=== PATIENT | male | born 1955 | race Caucasian/White ===

== ENCOUNTER 2022-03-23 12:20 | Emergency (ER) | payer MEDICARE, OTHER ==
[~2022-03-23] VITALS: Ht 172.7 cm; Wt 72.6 kg
[2022-03-23] MEDS ORDERED: LACTATED RINGERS 1,000 ML IV STA (12:46)
--- NOTE | 2022-03-23 12:46 | ED General ---
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 Started feeling sick roughly 8 days ago with fever, body aches. Tested positive for COVID roughly 6 days ago. Has been doing well and has not had a fever for couple days, but has had persistent nonbloody diarrhea. States he is trying to keep up with fluids, but having difficulty. He was having a bowel movement, bearing down, and almost passed out. His wanted him to be checked in the ER. He states he feels at his baseline right now other than slightly worn down. Denies any chest pain, shortness of breath, abdominal pain, nausea, vomiting, focal weakness or numbness, headache, neck stiffness, or any other concerns. COVID vaccinated x3. Allergies and Home Medications Allergies Coded Allergies: morphine (Verified Allergy, Mild, 03/23/22) n/v Patient Home Medication List Home Medication List Reviewed: Yes Review of Systems Review of Systems Constitutional: No fever EENTM: no symptoms reported Respiratory: no symptoms reported Cardiovascular: other (near syncope) Gastrointestinal: diarrhea Genitourinary: no symptoms reported Musculoskeletal: no symptoms reported Skin: no symptoms reported Psychiatric/Neurological: No Symptoms Reported Hematologic/Lymphatic: No Symptoms Reported Immunological/Allergic: no symptoms reported All Other Systems Reviewed Negative Unless Noted: Yes Past Fiebytq-Fhxaxl-Lgsoza Hx Patient Social History Tobacco Use?: No Substance use?: No Alcohol Use?: No Past Medical History Surgeries: Yes Appendectomy Physical Exam Vital Signs Vital Signs - First Documented 03/23/22 12:30 Temp 36.0 Pulse 90 Resp 18 B/P (MAP) 135/78 (97) Pulse Ox 96 O2 Delivery Room Air Capillary Refill : Height, Weight, BMI Height: '" Weight: lbs. oz. kg; BMI Method: General Appearance: No Apparent Distress, WD/WN Eyes: Bilateral Eye Normal Inspection HEENT: PERRL/EOMI, Normal ENT Inspection, Pharynx Normal Neck: Full Range of Motion, Normal Inspection, Non Tender, Supple Respiratory: Chest Non Tender, Lungs Clear, Normal Breath Sounds, No Accessory Muscle Use, No Respiratory Distress Cardiovascular: Regular Rate, Rhythm, No Edema, Normal Peripheral Pulses Gastrointestinal: Normal Bowel Sounds, Non Tender, Soft; No Distended, No Guarding Back: Normal Inspection, No CVA Tenderness Extremity: Normal Capillary Refill, Normal Inspection, Normal Range of Motion, Non Tender, No Calf Tenderness, No Pedal Edema Neurologic/Psychiatric: Alert, Oriented x3, No Motor/Sensory Deficits, Normal Mood/Affect, roller mill tender II-XII Norm as Tested, Other (normal gait) Skin: Normal Color, Warm/Dry Lymphatic: No Adenopathy Progress/Results/Core Measures Suspected Sepsis SIRS Temperature: Pulse: Respiratory Rate: Laboratory Tests 03/23/22 12:50: White Blood Count 11.0 Blood Pressure / Mean: Laboratory Tests 03/23/22 12:50: Platelet Count 172 Results/Orders Lab Results Laboratory Tests Test 03/23/22 12:50 Range/Units White Blood Count 11.0 4.3-11.0 10^3/uL Red Blood Count 5.04 4.30-5.52 10^6/uL Hemoglobin 15.2 13.3-17.7 g/dL Hematocrit 43 40-54 % Mean Corpuscular Volume 86 80-99 fL Mean Corpuscular Hemoglobin 30 25-34 pg Mean Corpuscular Hemoglobin Concent 35 32-36 g/dL Red Cell Distribution Width 12.4 10.0-14.5 % Platelet Count 172 130-400 10^3/uL Mean Platelet Volume 10.9 9.0-12.2 fL Immature Granulocyte % (Auto) 0 % Neutrophils (%) (Auto) 80 H 42-75 % Lymphocytes (%) (Auto) 12 12-44 % Monocytes (%) (Auto) 7 0-12 % Eosinophils (%) (Auto) 1 0-10 % Basophils (%) (Auto) 0 0-10 % Neutrophils # (Auto) 8.8 H 1.8-7.8 10^3/uL Lymphocytes # (Auto) 1.3 1.0-4.0 10^3/uL Monocytes # (Auto) 0.8 0.0-1.0 10^3/uL Eosinophils # (Auto) 0.1 0.0-0.3 10^3/uL Basophils # (Auto) 0.0 0.0-0.1 10^3/uL Immature Granulocyte # (Auto) 0.0 0.0-0.1 10^3/uL My Orders Orders - GRADY GRIMM MD Cbc With Automated Diff (03/23/22 12:42) Ekg Tracing (03/23/22 12:42) Lactated Ringers (Lr 1000 Ml Iv Solution (03/23/22 12:46) Chest 1 View Ap/Pa Only (03/23/22 12:59) Vital Signs/I&O 03/23/22 03/23/22 12:30 13:34 Temp 36.0 36.0 Pulse 90 94 Resp 18 18 B/P (MAP) 135/78 (97) 133/77 Pulse Ox 96 96 O2 Delivery Room Air Room Air Capillary Refill : Progress Note : Progress Note 66-year-old male with known COVID coming in after a near syncopal episode while bearing down having a bowel movement earlier today. At this time feels completely at his baseline without any chest pain or shortness of breath. Never developed any type of chest pain earlier as well. Has had consistent diarrhea, and is orthostatic here with blood pressure 130s sitting, in the 80s standing. An IV was placed and he was given a bolus of IV fluids with improvement in his orthostatics. Chest x-ray clear with no acute abnormalities. CBC essentially unremarkable. I believe he is otherwise stable for discharge with outpatient follow-up. He was sent home with strict return precautions ECG Initial ECG Impression Date: Mar 23, 2022 Initial ECG Impression Time: 12:46 Initial ECG Rate: 87 Initial ECG Rhythm: Normal Sinus Comment Narrow QRS, normal axis, no significant ST changes or T wave abnormalities, incomplete right bundle Diagnostic Imaging Diagonstic Imaging: Xray Plain Films/CT/US/NM/MRI: chest Comments [facility], [facility]. [place], [place] NAME: JANICELUIS Emerson [facility] REC#: [id number] PT STATUS: REG ER : 1955 PHYSICIAN: GRADY GRIMM MD ADMIT DATE: 03/23/22/ER FS Draft Date of Exam:03/23/22 CHEST 1 VIEW AP/PA ONLY CLINICAL INDICATION: Patient is COVID positive with productive cough. EXAM: Portable chest x-ray upright view. COMPARISON: None. FINDINGS: Lungs/pleura: Lungs are clear. There is no pneumothorax. There is no pleural effusion. Mediastinum: Unremarkable. Pulmonary vasculature: Unremarkable. Heart: Unremarkable. Bones/extrathoracic soft tissue: Unremarkable. IMPRESSION: There is no radiographic evidence of acute cardiopulmonary process. Dictated on workstation # [id number] Dict: 03/23/22 1316 Trans: 03/23/22 1319 AS6 [id number] Interpreted by: RANDA WILD MD Electronically signed by: Departure Impression Primary Impression: COVID-19 Additional Impression: Dehydration Disposition: 01 HOME, SELF-CARE Condition: Stable Departure-Patient Inst. Decision time for Depature: 13:32 Referrals: SHAYLEE CAMEJO MD (PCP) Primary Care Physician Patient Instructions: Dehydration, Adult (DC), COVID-19 (DC) Add. Discharge Instructions: You were mildly dehydrated and your blood pressure did drop when you stand which is a sign of dehydration. We did give you some IV fluids which should help. Be sure to be trying very hard to keep up with your fluids, especially if you continue to have diarrhea. Follow-up with your regular doctor if you are not improving over the next couple of days. Your chest x-ray is clear with no signs of pneumonia. GRADY GRIMM MD Mar 23, 2022 12:46
[2022-03-23 13:00] LABS: BASOPHILS % (AUTO) 0 % (0-10); EOSINOPHILS # (AUTO) 0.1 10^3/uL (0.0-0.3); EOSINOPHILS % (AUTO) 1 % (0-10); HEMATOCRIT 43 % (40-54); HEMOGLOBIN 15.2 g/dL (13.3-17.7); LYMPHOCYTES # (AUTO) 1.3 10^3/uL (1.0-4.0); LYMPHOCYTES % (AUTO) 12 % (12-44); MEAN CORPUSCULAR HEMOGLOBIN 30 pg (25-34); MEAN CORPUSCULAR HGB CONC 35 g/dL (32-36); MEAN CORPUSCULAR VOLUME 86 fL (80-99); MEAN PLATELET VOLUME 10.9 fL (9.0-12.2); MONOCYTES # (AUTO) 0.8 10^3/uL (0.0-1.0); MONOCYTES % (AUTO) 7 % (0-12); NEUTROPHILS # (AUTO) 8.8 10^3/uL (1.8-7.8); NEUTROPHILS % (AUTO) 80 % (42-75); PLATELET COUNT 172 10^3/uL (130-400)
--- NOTE | 2022-03-23 13:19 | Diagnostic Imaging Report ---
CLINICAL INDICATION: Patient is COVID positive with productive cough. EXAM: Portable chest x-ray upright view. COMPARISON: None. FINDINGS: Lungs/pleura: Lungs are clear. There is no pneumothorax. There is no pleural effusion. Mediastinum: Unremarkable. Pulmonary vasculature: Unremarkable. Heart: Unremarkable. Bones/extrathoracic soft tissue: Unremarkable. IMPRESSION: There is no radiographic evidence of acute cardiopulmonary process. Dictated by: Dictated on workstation # [id number]
[2022-03-23 13:34] VITALS: BP 133/77
== END 2022-03-23 13:36 | disposition home or self-care (01) ==
LOC: EDUNIT# 12:20 → ER FS 12:22
DX: U07.1 COVID-19 (principal); E86.0 Dehydration; Z73.0 Burn-out
CPT/HCPCS: 36415; 71045; 85025; 93005

== ENCOUNTER → 2022-07-24 | Outpatient (CLI) | payer MEDICARE ==
--- NOTE | 2022-07-24 11:50 | Diagnostic Imaging Report ---
EXAMINATION: Left knee radiographs, 3 views. COMPARISON: None. HISTORY: 67-year-old female, left knee pain. FINDINGS: The joint spaces are well preserved. There is no knee joint effusion. There is no acute fracture. IMPRESSION: 1. Unremarkable radiographs of the left knee. Dictated by: Dictated on workstation # [id number]
--- NOTE | 2022-07-24 13:13 | Diagnostic Imaging Report ---
INDICATION: Chondromalacia of the patella. COMPARISON: Imaging of the left knee from this same date. TECHNIQUE: Three radiographs of the right knee dated 07/24/2022. FINDINGS: No acute fracture or dislocation. No destructive osseous process. Joint spaces are well-maintained. No significant osteophytosis. No knee joint effusion. Mild background vascular calcifications. Curvilinear metallic density is noted within the soft tissues medial to the proximal tibial shaft. IMPRESSION: No acute osseous abnormality. Mild background vascular calcifications. Curvilinear metallic density within the soft tissues medial to the proximal tibial shaft. This is of uncertain etiology or significance. Recommend clinical correlation and direct visualization. Dictated by: Dictated on workstation # [id number]
== END ==
LOC: RAD FS 10:00
PROVIDERS: ATTEND Nurse Practitioner
DX: M22.41 Chondromalacia patellae, right knee (principal); M22.42 Chondromalacia patellae, left knee
CPT/HCPCS: 73562